=== PATIENT | female | born 1975 | race Caucasian/White ===

== ENCOUNTER 2016-09-14 11:24 | Emergency (ER) | payer BC ==
[2016-09-14 11:28] VITALS: BP 101/68; BMI 28.3
--- NOTE | 2016-09-14 12:11 | DR.EXTPAIN ---
HPI - Time seen Time seen: 12:05 - PCP Primary Care Physician: JAREK - HPI Comment HPI Comment: NO OTHER INJURY REPORT. SHE HIT POSTERIOR ASPECT OF ELBOW. - Complaint/Symptoms Chief Complaint Doctor Comments: RIGHT ELBOW PAIN FROM A FALL BEFORE COMING. Chief Complaint:: PT. C/O RIGHT ELBOW AND FOREARM PAIN S/P FALL. - Nurses notes reviewed Nurses Notes Review: Yes - Source History Provided: Patient - Mode of arrival Mode of Arrival: Ambulatory - Timing Onset of Chief Complaint: 09/14/16 - Context History of: None - Associated signs and symptoms Associated Signs and Symptoms: Pain, Swelling, Bruising PMH - PMH Past Medical History: Yes Past Medical History: Anxiety, Depression, Migraines, Ventricular Tachycardia Past Medical History Comment: POTS Past Surgical History: Yes Surgical History: Appendectomy, Cholecystectomy, Hysterectomy, Other - Family History History of Family Medical Conditions: Yes Family Medical History: Diabetes Mellitus - Social History Does patient currently use any type of tobacco product: No Have you used tobacco products in the last 12 months: No Type of Tobacco Use: None Does any household member use tobacco: No Alcohol Use: None Do you use any recreational Drugs:: No Lives With: Alone Lives Where: Home - infectious screening In the last 2 months have you had wt loss of >10#?: NO Have you had fever, night sweats or hemotysis?: No Have you traveled outside the country in the last 6 months?: No Isolation: Standard ROS - Review of Systems Constitutional: No Symptoms Reported Eyes: No Symptoms Reported ENTM: No Symptoms Reported Respiratoy: No Symptoms Reported Cardiovascular: No Symptoms Reported Gastrointestinal/Abdominal: No Symptoms Reported Genitourinary: No Symptoms Reported Neurological: No Symptoms Reported Musculoskeletal: Right, Elbow Integumentary: Bruises, Other (SWELLING RT ELBOW.) Hematologic/Lymphatic: No Symptoms Reported Endocrine: No Symptoms Reported All Other Systems: Reviewed and Negative PE - Vital Signs Vitals: Pulse Rate 76 Respiratory Rate 18 Blood Pressure 101/68 O2 Sat by Pulse Oximetry 97 - General Limitations: No Limitations General Appearance: Alert - Head Head Exam: Normal Inspection - Eyes Eye exam: Normal Appearance - ENT ENT Exam: Normal External Ear Exam - Neck Neck Exam: Normal Inspection - Chest Chest Inspection: Symmetric Chest Wall Rise - Respiratory Respiratory Exam: Normal Lung Sounds Bilat Respiratory Exam: Bilateral Clear to Auscultation - Cardiovascular Cardiovascular Exam: Regular Rate, Normal Rhythm, Normal Heart Sounds - Abdominal Exam Abdominal Exam: Normal Inspection - Extremities Extremities Exam: Tenderness (TENDERNESS AND SWELLING RT ELBOW. ROM DECREASE.), Joint Swelling (RT ELBOW SWELLING.) - Lower Extremities Neurovascular/Tendon Exam: Normal Capillary Refill Gait Exam: Observed and Normal - Back Back Exam: Normal Inspection - Neurological Neurological Exam: Alert, Oriented X3 - Psychiatric Psychiatric Exam: Normal Affect, Normal Mood - Skin Skin Exam: Erythema MDM - Differential Diagnosis Differential Diagnosis: Contusion, Fracture, Sprain Course - Treatment Treatment: SEE ORDERS. - Education/Counseling Education/Counseling: Patient, Family, Education Educated On: Treatment, Diagnosis, Needs for Follow Up ROR - XRAY XRAY Interpreted by: Radiologist XRAY Findings: REPORT DISCUSS WITH PATIENT AND HER FAMILY. - Diagnosis Discharge Problem: Contusion of elbow, right Qualifiers: Encounter type: initial encounter Qualified Code(s): S50.01XA - Contusion of right elbow, initial encounter Sprain of elbow, right Qualifiers: Encounter type: initial encounter Qualified Code(s): S53.401A - Unspecified sprain of right elbow, initial encounter - Discharge Plan Disposition: 01 HOME, SELF-CARE Condition: Stable Prescriptions: Ibuprofen [MOTRIN TAB 600 MG *] 600 mg PO TID PRN #20 tab PRN Reason: Pain/Inflammation Methylprednisolone Dosepak 4Mg [MEDROL DOSEPAK (4 mg tab x 21)] 1 liliana PO ONCE # 1 liliana Tramadol HCl 50 mg PO TID PRN #15 tablet PRN Reason: - Follow ups/Referrals Follow ups/Referrals: CAROL TILLEY [Primary Care Provider] - 3 days - Instructions Instructions: Elbow Contusion, [id number], Muscle Strain Additional Instructions: RETURN TO ED IF WORSE.
[2016-09-14] MEDS ORDERED: TORADOL 60 MG VIAL IM ONE (12:20)
[2016-09-14] MEDS ORDERED: TORADOL 60 MG VIAL ONE (12:30)
--- NOTE | 2016-09-14 12:58 | RAD ---
HISTORY: Injury, fall, right forearm pain Study: Right forearm two view Comparison: None Findings: There is no evidence for fracture, lytic, or blastic lesion. No abnormal periosteal reaction or soft tissue abnormality is identified. IMPRESSION: No significant abnormality identified Reported By:
[2016-09-15] MEDS ORDERED: MEDROL DOSEPAK 4 MG PER TAB PO NR (09:00)
== END 2016-09-14 13:48 | disposition home or self-care (01) ==
LOC: ER 11:46
DX: S50.01XA Contusion of right elbow, initial encounter (principal); S53.401A Unspecified sprain of right elbow, initial encounter; W19.XXXA Unspecified fall, initial encounter; Y92.9 Unspecified place or not applicable
CPT/HCPCS: 73090; 96372; 99282; 99283; J1885

== ENCOUNTER 2022-07-29 14:40 | Inpatient (IN) ==
--- NOTE | 2022-07-29 16:07 | DR.GENAD ---
HPI Time Seen Time Seen by Provider: 07/29/22 16:07 PCP Primary Care Physician: nfd Complaint/Symptoms Chief Complaint Doctors Comments: 47 y/o female not feeling well over the past week. Having nausea, abdominal pressure, having difficulty moving her bowels. Pain across the upper abdomen, radiates to R lower ribs. + h/o IBS, takes Miralax regulary. Added Mg, now with small, loose stools. 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 Denies URI symptoms, fever, chills. Is urinating frequently. Has had multiple abd surgeries - GB, complete hyst, appendix, adhesions. + h/o wide spread endometriosis. Chief Complaint:: bright red blood from rectum. has been feeling pressure for the last week. bm was been mucous and feels like cant empty bowls. pain to the right lower rib area. has experienced nausea. over a week since her last known normal for her bowl movement. Self Treatment fo Chief Complaint: uses magnesium 400mg at night and a cap of miralax in the am COVID-19 Coronavirus risk:travel/contact w/high risk person: No Has patient experienced Coronavirus symptoms: No Nurses notes reviewed Nurses Notes Review: Yes Source History Provided: Patient Mode of Arrival Mode of Arrival: Ambulatory Timing Onset of Chief Complaint: 07/29/22 PMH PMH Past Medical History: Yes Past Medical History: Anxiety, Depression, Migraines and Ventricular Tachycardia Past Medical History Comment: Endometriosis Past Surgical History: Yes Surgical History: Appendectomy, Cholecystectomy, Hysterectomy and Other Family History History of Family Medical Conditions: Yes Family Medical History: Diabetes Mellitus, Cancer and Hypertension Social History Does patient currently use any type of tobacco product: No Alcohol Use: None Do you use any recreational Drugs:: Yes (cbd pen sometimes) Lives With: Family Lives Where: Home Travel Risk Coronavirus risk:travel/contact w/high risk person: No Has patient experienced Coronavirus symptoms: No Infectious screening In the last 2 months have you had wt loss of >10#?: NO Have you had fever, night sweats or hemotysis?: No Have you traveled outside the country in the last 6 months?: No Isolation: Standard ROS Review of Systems Constitutional: No Symptoms Reported Eyes: No Symptoms Reported ENTM: No Symptoms Reported Respiratoy: No Symptoms Reported Cardiovascular: No Symptoms Reported Gastrointestinal/Abdominal: See HPI Genitourinary: No Symptoms Reported Neurological: No Symptoms Reported Musculoskeletal: No Symptoms Reported Integumentary: No Symptoms Reported Hematologic/Lymphatic: No Symptoms Reported All Other Systems: Reviewed and Negative PE Vital Signs Vitals: Temperature 99.0 F Pulse Rate 80 Respiratory Rate 22 Respiratory Rate 22 Respiratory Rate 16 Blood Pressure 102/65 O2 Sat by Pulse Oximetry 96 07/29/22 18:04 07/29/22 18:34 Respiratory Rate 22 22 Respiratory Effort Normal Non-Labored Normal Non-Labored General General Appearance: Alert and In No Apparent Distress Head Head Exam: Normal Inspection Eyes Eye exam: PERRL and EOMI ENT ENT Exam: Normal Oropharynx and Mucous Membranes Moist Neck Neck Exam: Normal Inspection and Full ROM Chest Chest Inspection: Normal Inspection Respiratory Respiratory Exam: Normal Lung Sounds Bilat; negative Accessory Muscle Use or Respiratory Distress Cardiovascular Cardiovascular Exam: Regular Rate, Normal Rhythm and Normal Heart Sounds Abdominal Exam Abdominal Exam: Normal Bowel Sounds, Soft and Tenderness (across upper abdomen. No guarding or rebound. ) Extremities Extremities Exam: Normal Inspection; negative Edema Back Back Exam: negative (R) CVA Tenderness or (L) CVA Tenderness Neurologic Neurological Exam: Alert, Oriented X3 and CN II-XII Intact; negative Motor Sensory Deficit Skin Skin Exam: Warm and Dry Other Exam Other Exam: Rectal exam (w/ nurse present) - empty rectum, no gross blood. 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 Pt given IV fluids, IV zofran. Labs show elevated lipase, 800+. Will pursue CT abd/pelvis. Zofran did not help with nausea. Will give IV compazine/zofran. Recommend admission for upper abd pain, probable pancreatitis. CT abd/pelvis does not report any obvious pancreas issues, does have changes c/w gastroenteritis. ROR Labs Reviewed Laboratory Results Reviewed?: Yes Result Diagrams: 07/29/22 16:27 07/29/22 16:27 Laboratory: WBC 6.7 X10^3/uL (3.6-10.0) 07/29/22 16:27 RBC 4.40 X10^6/uL (3.5-5.4) 07/29/22 16:27 Hgb 13.9 g/dL (12.0-16.0) 07/29/22 16:27 Hct 40.8 % (36.0-47.0) 07/29/22 16: MCV 92.7 fL (80.0-100.0) 07/29/22 16: MCH 31.5 pg (27.0-34.0) 07/29/22 16: MCHC 34.0 g/dL (33.0-35.0) 07/29/22 16: RDW 13.7 % (11.6-16.5) 07/29/22 16: Plt Count 275 X10^3/uL (150.0-450.0) 07/29/22 16: MPV 7.2 fL (7.4-11.0) L 07/29/22 16: Neut % (Auto) 53.3 % (42.0-75.0) 07/29/22 16: Lymph % (Auto) 37.0 % (21.0-51.0) 07/29/22 16: [place] % (Auto) 7.1 % (0.0-13.0) 07/29/22 16: Eos % (Auto) 1.9 % (0.9-2.9) 07/29/22 16: Baso % (Auto) 0.7 % (0.2-1.0) 07/29/22 16: Neut # (Auto) 3.6 x10^3/uL (2.2-4.8) 07/29/22 16: Lymph # (Auto) 2.5 X10^3/uL (1.3-2.9) 07/29/22 16:27 [place] # (Auto) 0.5 x10^3/uL (0.3-0.8) 07/29/22 16: Eos # (Auto) 0.1 x10^3/uL (0.0-0.2) 07/29/22 16: Baso # (Auto) 0.0 X10^3/uL (0.0-0.1) 07/29/22 16: Absolute Nucleated RBC 0.0 /100WBC 07/29/22 16: Sodium 140 mmol/L (136-145) 07/29/22 16: Corrected Sodium TNP 07/29/22 16:27 Potassium 3.8 mmol/L (3.5-5.1) 07/29/22 16:27 Chloride 102 mmol/L (98-107) 07/29/22 16:27 Carbon Dioxide 30.7 mmol/L (21-32) 07/29/22 16:27 BUN 16 mg/dL (7-18) 07/29/22 16:27 Creatinine 0.71 mg/dL (0.55-1.02) 07/29/22 16:27 Est GFR (MDRD) Af Amer > 60 (>60) 07/29/22 16:27 Est GFR (MDRD) Non-Af > 60 (>60) 07/29/22 16:27 Glucose 89 mg/dL (65-99) 07/29/22 16:27 Calcium 8.7 mg/dL (8.5-10.1) 07/29/22 16:27 Corrected Calcium TNP 07/29/22 16:27 Total Bilirubin 0.20 mg/dL (0.2-1.0) 07/29/22 16:27 AST 13 Units/L (15-37) L 07/29/22 16:27 ALT 24 Units/L (12-78) 07/29/22 16:27 Alkaline Phosphatase 80 Units/L (46-116) 07/29/22 16:27 Total Protein 7.1 g/dL (6.4-8.2) 07/29/22 16:27 Albumin 4.1 g/dL (3.4-5.0) 07/29/22 16:27 Globulin 3.0 g/dL (2.5-4.5) 07/29/22 16:27 Albumin/Globulin Ratio 1.4 Ratio (1.1-2.1) 07/29/22 16:27 Lipase 838 Units/L (73-393) H 07/29/22 16:27 Specimen Type Clean catch urine 07/29/22 16:20 Urine Color Straw (YELLOW) 07/29/22 16:20 Urine Appearance Clear (CLEAR) 07/29/22 16:20 Urine pH 6.0 (5.0 - 8.0) 07/29/22 16:20 Ur Specific [place] 1.010 (1.000-1.030) 07/29/22 16:20 Urine Protein Negative (NEGATIVE) 07/29/22 16:20 Urine Glucose (UA) Negative (NEGATIVE) 07/29/22 16:20 Urine Ketones Negative (NEGATIVE) 07/29/22 16:20 Urine Blood Negative (NEGATIVE) 07/29/22 16:20 Urine Nitrite Negative (NEGATIVE) 07/29/22 16:20 Urine Bilirubin Negative (NEGATIVE) 07/29/22 16:20 Urine Urobilinogen Normal (NORMAL) 07/29/22 16:20 Ur Leukocyte Esterase Negative (NEGATIVE) 07/29/22 16:20 Opioid Opioid Risk Tool Age (Ciro box if 16-45): No History of Preadolescent Sexual Abuse: No Total: 0 Total Score Risk Category: Low Risk Copyright: Braulio BURGOS predicting aberrant behaviors Discharge Plan Diagnosis Discharge Problem: Acute pancreatitis Discharge Plan Patient Disposition: 09 ADMITTED INPATIENT Condition: Stable
[2022-07-29] MEDS ORDERED: NS 1,000 ML IV 1,000 ML IV ONE (16:15)
[2022-07-29] MEDS ORDERED: ZOFRAN INJ 4 MG VIAL IVP ONE (16:15)
[2022-07-29] MEDS ORDERED: ZOFRAN INJ 4 MG VIAL ONE (16:18)
[2022-07-29] MEDS ORDERED: NS 1,000 ML IV 1,000 ML ONE (16:18)
[2022-07-29 16:32] LABS: BILIRUBIN,URINE NEGATIVE (NEGATIVE); BLOOD/HEMOGLOBIN,URINE NEGATIVE (NEGATIVE); GLUCOSE, URINE NEGATIVE (NEGATIVE); KETONES,URINE NEGATIVE (NEGATIVE); LEUKOCYTE ESTERASE ,URINE NEGATIVE (NEGATIVE); NITRITES,URINE NEGATIVE (NEGATIVE); PROTEIN,URINE NEGATIVE (NEGATIVE); UROBILINOGEN,URINE NORMAL (NORMAL)
[2022-07-29 16:35] LABS: APPEARANCE,URINE CLEAR (CLEAR); COLOR,URINE STRAW (YELLOW)
[2022-07-29 16:39] LABS: BASOPHILS % (AUTO) 0.7 % (0.2-1.0); EOSINOPHILS # (AUTO) 0.1 x10^3/uL (0.0-0.2); EOSINOPHILS % (AUTO) 1.9 % (0.9-2.9); HEMATOCRIT 40.8 % (36.0-47.0); HEMOGLOBIN 13.9 g/dL (12.0-16.0); LYMPHOCYTES # (AUTO) 2.5 X10^3/uL (1.3-2.9); MEAN CORPUSCULAR HEMOGLOBIN 31.5 pg (27.0-34.0); MEAN CORPUSCULAR VOLUME 92.7 fL (80.0-100.0); MEAN PLATELET VOLUME 7.2 fL (7.4-11.0); MONOCYTES # (AUTO) 0.5 x10^3/uL (0.3-0.8); MONOCYTES % (AUTO) 7.1 % (0.0-13.0); NEUTROPHILS # (AUTO) 3.6 x10^3/uL (2.2-4.8); NEUTROPHILS % (AUTO) 53.3 % (42.0-75.0); PLATELET COUNT 275 X10^3/uL (150.0-450.0); RED CELL DISTRIBUTION WIDTH 13.7 % (11.6-16.5); WHITE BLOOD COUNT 6.7 X10^3/uL (3.6-10.0)
[2022-07-29 16:56] LABS: ALANINE AMINOTRANSFERASE 24 Units/L (12-78); ALBUMIN 4.1 g/dL (3.4-5.0); ALKALINE PHOSPHATASE 80 Units/L (46-116); ASPARTATE AMINO TRANSFERASE 13 Units/L (15-37); BLOOD UREA NITROGEN 16 mg/dL (7-18); CALCIUM 8.7 mg/dL (8.5-10.1); CARBON DIOXIDE 30.7 mmol/L (21-32); CHLORIDE 102 mmol/L (98-107); CREATININE 0.71 mg/dL (0.55-1.02); GLUCOSE 89 mg/dL (65-99); LIPASE 838 Units/L (73-393); POTASSIUM 3.8 mmol/L (3.5-5.1); SODIUM 140 mmol/L (136-145); TOTAL PROTEIN 7.1 g/dL (6.4-8.2); eGFR NON BLACK RACES > 60 (>60)
[2022-07-29] MEDS ORDERED: BENADRYL INJ 50 MG VIAL IVP ONE (17:48)
[2022-07-29] MEDS ORDERED: COMPAZINE INJ ONE (17:48)
[2022-07-29] MEDS ORDERED: BENADRYL INJ 50 MG VIAL ONE (17:48)
[2022-07-29] MEDS ORDERED: COMPAZINE INJ IVP ONE (17:48)
[2022-07-29] MEDS ORDERED: DEMEROL INJ ONE (17:59)
[2022-07-29] MEDS ORDERED: DEMEROL INJ IVP ONE (17:59)
--- NOTE | 2022-07-29 19:22 | CT ---
EXAM: CT ABDOMEN AND PELVIS WITH INTRAVENOUS CONTRASTHISTORY: Bright red blood per rectum.TECHNIQUE: Spiral axial CT images are obtained through the abdomen and pelvis without the administration of oral contrast and with the administration of intravenous contrast. Additional coronal and sagittal reformatted images are reconstructed.DOSIMETRY: Total DLP 235.16 mGycm; CTDI 4.52 mGyCOMPARISON: None available.FINDINGS:GASTROINTESTINAL TRACT: Nonspecific, fluid-filled, nondilated stomach, small bowel loops, and right-sided large bowel loops; presumed gastroenteritis with impending diarrhea. Clinical correlation is advised. There is no evidence for bowel herniation, bowel obstruction, colitis or diverticulitis. Status post appendectomy.GENITOURINARY SYSTEM: The kidneys are unremarkable. There is no ureteral calculus or stigmata of obstructive uropathy. The urinary bladder is grossly unremarkable for a non-dedicated exam.CT ABDOMEN: Status post cholecystectomy. There is mildly enlarged and nodular appearance of the adrenal glands, left greater than right; nonspecific findings; DDx includes bilateral adrenal hyperplasia; cannot rule out adrenal adenomas (or other adrenal nodules). Axial image 21?27. Coronal image 28?35. Correlation with dedicated MRI may be beneficial for further characterization as clinically warranted. The liver, spleen, pancreas, aorta, and inferior vena cava are within normal limits for a CT scan. There is no intra-abdominal or retroperitoneal lymphadenopathy, free fluid, or free air seen. No abdominal herniation is noted.CT PELVIS: Status post hysterectomy. No pelvic sidewall or inguinal lymphadenopathy is seen. No inguinal herniation is noted. No free fluid or free air is seen.BONES AND JOINTS: The visualized bony structures are within normal limits.LUNG BASES: The lung bases are clear.IMPRESSION:1. Nonspecific, fluid-filled, nondilated stomach, small bowel loops, and right-sided large bowel loops; presumed gastroenteritis with impending diarrhea in the appropriate clinical setting. Clinical correlation is advised.2. No evidence for pyelonephritis, renal stone disease or obstructive uropathy.3. No evidence for acute appendicitis, bowel herniation/obstruction, colitis or diverticulosis/diverticulitis seen.4. No free fluid, free air, mass or lymphadenopathy seen.5. Mildly enlarged and nodular appearance of the adrenal glands, left greater than right; nonspecific findings; DDx includes bilateral adrenal hyperplasia; cannot rule out adrenal adenomas (or other adrenal nodules). Axial image 21?27. Coronal image 28?35. Correlation with dedicated MRI may be beneficial for further characterization as clinically warranted.6. Status post cholecystectomy, appendectomy, and hysterectomy.Electronically signed by: Declan Olmos (Jul 29, 2022 19:20:42)
[2022-07-29] MEDS: D5 1/2 NS 1,000 ML 1,000 ML IV SCH (19:54)
[2022-07-29] MEDS: COMPAZINE INJ IVP PRN (21:06)
[2022-07-29] MEDS: DEMEROL INJ IVP PRN (21:32)
[2022-07-29 21:35] VITALS: BMI 28.3
[2022-07-30] MEDS: DEMEROL INJ IVP PRN (02:48)
[2022-07-30] MEDS: COMPAZINE INJ IVP PRN ×2 (02:48→09:44)
[2022-07-30] MEDS: D5 1/2 NS 1,000 ML 1,000 ML IV SCH (02:49)
[2022-07-30 06:47] LABS: BASOPHILS % (AUTO) 0.9 % (0.2-1.0); EOSINOPHILS # (AUTO) 0.1 x10^3/uL (0.0-0.2); EOSINOPHILS % (AUTO) 2.3 % (0.9-2.9); HEMATOCRIT 37.8 % (36.0-47.0); HEMOGLOBIN 12.6 g/dL (12.0-16.0); LYMPHOCYTES # (AUTO) 1.9 X10^3/uL (1.3-2.9); LYMPHOCYTES % (AUTO) 40.1 % (21.0-51.0); MEAN CORPUSCULAR HGB CONC 33.3 g/dL (33.0-35.0); MEAN PLATELET VOLUME 7.5 fL (7.4-11.0); MONOCYTES # (AUTO) 0.4 x10^3/uL (0.3-0.8); MONOCYTES % (AUTO) 9.1 % (0.0-13.0); NEUTROPHILS # (AUTO) 2.3 x10^3/uL (2.2-4.8); NEUTROPHILS % (AUTO) 47.6 % (42.0-75.0); PLATELET COUNT 233 X10^3/uL (150.0-450.0); RED BLOOD COUNT 4.06 X10^6/uL (3.5-5.4); RED CELL DISTRIBUTION WIDTH 13.4 % (11.6-16.5); WHITE BLOOD COUNT 4.8 X10^3/uL (3.6-10.0)
[2022-07-30 07:11] LABS: ALANINE AMINOTRANSFERASE 20 Units/L (12-78); ALBUMIN 3.4 g/dL (3.4-5.0); ALKALINE PHOSPHATASE 60 Units/L (46-116); AMYLASE 44 Units/L (25-115); ASPARTATE AMINO TRANSFERASE 12 Units/L (15-37); BLOOD UREA NITROGEN 10 mg/dL (7-18); CALCIUM 8.1 mg/dL (8.5-10.1); CARBON DIOXIDE 29.3 mmol/L (21-32); CHLORIDE 107 mmol/L (98-107); GLUCOSE 89 mg/dL (65-99); LIPASE 130 Units/L (73-393); POTASSIUM 3.8 mmol/L (3.5-5.1); SODIUM 142 mmol/L (136-145); eGFR NON BLACK RACES > 60 (>60)
[2022-07-30] MEDS ORDERED: BENTYL CAP 10 MG PO SCH (10:23)
[2022-07-30 15:00] VITALS: BP 86/53; PULSE 53; TEMP 98; O2SAT 97
--- NOTE | 2022-07-30 17:36 | DR.CARTERS ---
Short Stay Summary - Admission Date Date of Admission: 07/29/22 - Discharge Date Discharge Date: 07/30/22 - Admission Diagnoses (1) Gastroenteritis Status: Acute (2) Abdominal pain Status: Acute (3) Elevated lipase Status: Acute - Discharge Medications Discharge Medications: Home Medication List dicyclomine 20 mg tablet 20 mg PO QID #40 tabs 07/30/22 [Rx] Prescriptions: dicyclomine Robert Vila [place] [facility] Course Hospital Course: IS A 47 YEAR OLD PATIENT OF [facility]. SHE PRESENTED TO THE ER WITH COMPLAINTS OF ABDOMINAL PAIN, NAUSEA, AND DIARRHEA FOR THE PAST WEEK. INITIALLY, SHE WAS CONSTIPATED, BUT BEGAN HAVING DIARRHEA AFTER SHE STARTED TAKING MIRALAX. SHE REPORTED THAT PRIOR TO COMING TO THE ER, SHE STARTED HAVING BRIGHT RED BLOOD IN HER STOOLS. SHE IS ALSO HAVING FREQUENT URINATION. ABDOMINAL PAIN IS LOCATED IN THE UPIGASTRIC REGION. SHE DESCRIBES IT PRESSURE AND CRAMPING. SHE RATES PAIN A 5/10. SHE DENIED URI SYMPTOMS, FEVER, CHILLS, OR VOMITING. HER PMH INCLUDES ANXIETY, DEPRESSION, MIGRAINES, VENTRICULAR TACHYCARDIA, CHOLECYSTECTOMY, HYSTERECTOMY, APPENDECTOMY, IBS, ENDOMETRIOSIS. ON ARRIVAL TO THE ER, VITALS WERE: 99.0-80-16-96%-102/65. LABS WERE OBTAINED. WBC 6.7, RBC 4.40, HGB 13.9, HCT 40.8, SODIUM 140, POTASSIUM 3.8, CHLORIDE 102, CARBON DIOXIDE 30.7, BUN 16, CREATININE 0.71, GLUCOSE 89, CALCIUM 8.7, TOTAL BILI 0.20, AST 13, ALT 24, ALK PHOS 80, TOTAL PROTEIN 7.1, ALBUMIN 4.1, LIPASE 838. URINALYSIS WAS UNREMARKABLE. AN ABDOMEN/PELVIS CT WITH CONTRAST WAS OBTAINED AND REVEALED: 1. Nonspecific, fluid-filled, nondilated stomach, small bowel loops, and right-sided large bowel loops; presumed gastroenteritis with impending diarrhea in the appropriate clinical setting. Clinical correlation is advised. 2. No evidence for pyelonephritis, renal stone disease or obstructive Uropathy. 3. No evidence for acute appendicitis, bowel herniation/obstruction, colitis or diverticulosis/diverticulitis Seen. 4. No free fluid, free air, mass or lymphadenopathy Seen. 5. Mildly enlarged and nodular appearance of the adrenal glands, left greater than right; nonspecific findings; DDx includes bilateral adrenal hyperplasia; cannot rule out adrenal adenomas (or other adrenal nodules). Axial image 21?27. Coronal image 28?35. Correlation with dedicated MRI may be beneficial for further characterization as clinically Warranted. 6. Status post cholecystectomy, appendectomy, and hysterectomy. IN THE ER, SHE WAS GIVEN A NORMAL SALINE BOLUS, ZOFRAN 4MG IV X 1, BENADRYL 25MG IV X 1, COMPAZINE 10MG IV X 1, DEMEROL 25MG IV X 1. SHE WAS ADMITTED TO THE HOSPITAL FOR FURTHER EVALUATION AND TREATMENT OF GASTROENTERITIS, ABDOMINAL PAIN, ELEVATED LIPASE. SHE WAS STARTED ON D51/2 NS AT 125 ML/HR, DEMEROL 25MG IV Q4H PRN, COMPAZINE 10MG IV Q6H PRN, AND DICYCLOMINE 20MG QID. OTHERWISE, WE PLANNED TO FOLLOW UP WITH AM LABS AND CONTINUE TO MONITOR. ON THE MORNING FOLLOWING ADMISSION, PATIENT IS ALERT AND ORIENTED, LYING IN BED ON MORNING ROUNDS. SHE REPORTS ONLY MILD ABDOMINAL CRAMPING AT TIMES. SHE DENIES LOOSE BOWEL MOVEMENTS OR NAUSEA THIS MORNING. ON EXAMINATION, HEART IS REGULAR IN RATE AND RHYTHM. BILATERAL LUNGS ARE NOTED WITH DIMINISHED LUNG SOUNDS THROUGHOUT. ABDOMEN IS ROUND, SOFT, AND NON-TENDER WITH NORMAL BOWEL SOUNDS NOTED IN ALL QUADRANTS. GOOD MOVEMENT NOTED TO UPPER AND LOWER EXTREMITIES WITH NO EDEMA NOTED. HER VITALS WERE: 97.7-52-20-98%-95/50. ON REPEAT LABS, LIPASE DECREASED TO 130. WE PLANNED FOR DISCHARGE. INSTRUCTIONS FOR MEDICATIONS AND FOLLOW-UP WERE DISCUSSED WITH PATIENT. SHE WAS GIVEN A NEW PRESCRIPTION FOR DICY CLOMINE 20MG PO QID. SHE WAS INSTRUCTED TO FOLLOW-UP WITH HER PRIMARY CARE PROVIDER IN ONE WEEK. SHE WAS DISCHARGED HOME WITH FAMILY IN STABLE CONDITION. TIME SPENT ON CLINICAL ASSESSMENT, REVIEWING LABS AND IMAGING, DECISION MAKING, DISCHARGE INSTRUCTIONS, PREPARING DISCHARGE PAPERS, AND DOCUMENTATION GREATER THAN 75 MINUTES. - Discharge Plan Disposition: HOME, SELF-CARE Condition: Stable Prescriptions: dicyclomine 20 mg PO QID #40 tabs - Follow up/Referrals Follow up/Referrals: CAROL TILLEY [Primary Care Provider] - 3 days - Instructions Additional Instructions: DIET TOLERATED. ACTIVITY TOLERATED. Forms: Excuse From Work or School
== END 2022-07-30 14:30 | disposition home or self-care (01) | DRG 392 ==
LOC: ER 14:40 → MED/SURG 18:34
PROVIDERS: ADMIT Internal Medicine; ATTEND Internal Medicine
DX: E27.8 Other specified disorders of adrenal gland; K52.89 Other specified noninfective gastroenteritis and colitis; R74.8 Abnormal levels of other serum enzymes; K92.1 Melena; R10.84 Generalized abdominal pain